=== PATIENT | male | born 1980 | race African-American/Black ===

== ENCOUNTER 2018-09-07 02:45 | Emergency (ER) | payer OTHER ==
[~2018-09-07] VITALS: Ht 177.8 cm; Wt 81.6 kg
[2018-09-07 02:54] VITALS: BP 140/87
[2018-09-07] MEDS ORDERED: LIDOCAINE 2% (LOCAL ANESTH.) PF 5ml SDV ONE (06:19)
== END 2018-09-07 03:33 | disposition home or self-care (01) ==
LOC: EDBD 02:45 → ER 02:53
DX: F15.10 Other stimulant abuse, uncomplicated (principal)
CPT/HCPCS: 99283; J2001

== ENCOUNTER 2019-04-12 21:26 | Emergency (ER) | payer SELFPAY ==
[~2019-04-12] VITALS: Ht 172.7 cm; Wt 68.0 kg
[2019-04-12 21:56] VITALS: BP 150/77
[2019-04-13] MEDS ORDERED: cefTRIAXone SOD 1,000 MG VL IM ONE (00:15)
[2019-04-13] MEDS ORDERED: HYDROcodone-ACET 10/325MG TAB PO ONE (00:15)
== END 2019-04-13 00:48 | disposition home or self-care (01) ==
LOC: EDBD 21:26 → ER 21:28
DX: S00.93XA Contusion of unspecified part of head, initial encounter (principal); W18.00XA Striking against unspecified object with subsequent fall, initial encounter; Y93.89 Activity, other specified; Y92.89 Other specified places as the place of occurrence of the external cause; Y99.8 Other external cause status
CPT/HCPCS: 70450; 96372; 99284; J0696

== ENCOUNTER 2024-10-21 11:57 | Emergency (ER) | payer SELFPAY ==
[~2024-10-21] VITALS: Ht 180.3 cm; Wt 68.1 kg
[2024-10-21 12:49] VITALS: BP 146/99; PULSE 68; RESP 20; TEMP 98.2; O2SAT 100
[2024-10-21 14:30] LABS: Basophils # (auto) 0 10 ^3/uL (0-0.2); Basophils % (auto) 0.5 % (0.0-2.0); Eosinophils # (auto) 0.1 10 ^3/uL (0-0.8); Eosinophils % (auto) 1.5 % (0.0-7.0); Hematocrit 38.4 % (41.0-53.0); Lymphocytes # (auto) 0.8 10 ^3/uL (0.4-5.4); Lymphocytes % (auto) 8.1 % (10.0-50.0); Mean Corpuscular Hemoglobin 28.8 pg (28.0-32.0); Mean Corpuscular Hgb Conc. 33.7 g/dL (32.0-36.0); Mean Corpuscular Volume 85.5 fL (80.0-100.0); Monocytes # (auto) 0.5 10 ^3/uL (0-1.3); Monocytes % (auto) 5.8 % (0.0-12.0); Neutrophils # (auto) 7.9 10 ^3/uL (1.6-8.6); Neutrophils % (auto) 84.1 % (37.0-80.0); Platelet Count (auto) 372 10^3/uL (140-450); Red Cell Distribution Width 15.2 % (11.8-14.3); White Blood Cell 9.3 10^3/uL (4.4-10.8)
[2024-10-21 14:34] LABS: Chloride 103 mmol/L (98-107); Potassium 4.2 mmol/L (3.5-5.1); Sodium 136 mmol/L (136-145)
[2024-10-21 14:35] LABS: Anion Gap 6 (5-15); Calcium 9.9 mg/dL (8.7-10.4); Carbon Dioxide 27 mmol/L (20-31)
[2024-10-21 14:40] LABS: BUN/Creatinine Ratio 8.7 (10.0-20.0); Blood Urea Nitrogen 11 mg/dL (9-23); Glucose 91 mg/dL (74-106)
--- NOTE | 2024-10-21 15:35 | ED.PDOC ---
Foreign Body HPI Comments 43 year old male presents to the ED for the c/c of a possible abscess located above the right orbital rim. Pt states that he has recently moved to the [facility] from [facility], and has since noticed the Abscess starting to grow. Pt states that he is unable to open eye because of "leakage". Right eye pain with cellulitis noted. Denies vision changes Denies eye discharge Denies hearing changes, nausea, vomiting Denies eye pain with movement, eye pain in general, feeling of something stuck in the eye, sensitivity to light Chief Complaint: Abscess Time Seen by MD: 15:29 History of Present Illness: Nurses Notes, Medications, Allergies Allergies: Coded Allergies: NO KNOWN ALLERGIES (Unverified , 10/21/24) Information Source: Patient Mode of Arrival: Ambulatory Timing: Weeks Duration: Since onset Severity: Moderate Prehospital treatment: None Location: Right Foreign Body: Unknown Removal: Unknown Associated signs and symptoms: Pain, Discharge Past Medical History PAST MEDICAL HISTORY: Denies Surgical History: Denies all surgeries Family History Family History: Reviewed,noncontributory to illness, No family hx of Cancer, No family hx of DM, No family hx of Heart sherry, No family hx of HTN, No family hx ofKidney sherry, No family hx of Liver sherry, No family hx of Lung sherry, No family hx of Stroke Social History Smoker: Non-Smoker Alcohol: Denies ETOH Use Drugs: Denies Drug Use Lives In: Home Constitutional: denies: chills, diaphoresis, fatigue, fever, malaise, sweats, weakness, others EENTM: reports: eye pain, eye redness; denies: blurred vision, double vision, ear bleeding, ear discharge, ear drainage, ear pain, ear ringing, hearing loss, mouth pain, mouth swelling, nasal discharge, nose bleeding, nose congestion, nose pain, photophobia, tearing, throat pain, throat swelling, voice changes, others Respiratory: denies: cough, hemoptysis, orthopnea, SOB at rest, shortness of breath, SOB with excertion, stridor, wheezing, others Cardiovascular: denies: chest pain, dizzy spells, diaphoresis, Dyspnea on exertion, edema, irregular heart beat, left arm pain, lightheadedness, palpitations, PND, syncope, others Gastrointestinal: denies: abdomen distended, abdominal pain, blood streaked bowels, constipated, diarrhea, dysphagia, difficulty swallowing, hematemesis, melena, nausea, poor appetite, poor fluid intake, rectal bleeding, rectal pain, vomiting, others Genitourinary: denies: burning, dysuria, flank pain, frequency, hematuria, incontinence, penile discharge, penile sore, pain, testicle pain, testicle swelling, urgency, others Neurological: denies: dizziness, fainting, headache, left sided numbness, left sided weakness, numbness, paresthesia, pre-existing deficit, right sided numbness, right sided weakness, seizure, speech problems, tingling, tremors, weakness, others Musculoskeletal: denies: back pain, gout, joint pain, joint swelling, muscle pain, muscle stiffness, neck pain, others Integumetry: denies: bruises, change in color, change in hair/nails, dryness, laceration, lesions, lumps, rash, wounds, others Allergic/Immunocompromised: denies: Difficulty Healing, Frequent Infections, Hives, Itching, others Hematologic/Lymphatic: denies: anemia, blood clots, easy bleeding, easy bruising, swollen glands, others Endocrine: denies: excessive hunger, excessive sweating, excessive thirst, excessive urination, flushing, intolerance to cold, intolerance to heat, unexplained weight gain, unexplained weight loss, others Psychiatric: denies: anxiety, bipolar disorder, depression, hopeless, panic disorder, schizophrenia, sleepless, suicidal, others All Other Systems: Reviewed and Negative Physical Exam General Appearance: No Apparent Distress, Normal HEENT: Other (notacible localized soft tissue swelling above the right orbital rim ,swelling is approx 3.5 by 3cm round in diameter and 3cm in depth, fluxuance to palpation, and no ttp, unable to visulaize the eye due to swelling) Neck: Full Range of Motion, Non-Tender, Normal, Normal Inspection Respiratory: Chest Non-Tender, Lungs Clear, No Accessory Muscle Use, No Respiratory Distress, Normal Breath Sounds Cardiovascular: No Edema, No JVD, No Murmur, No Gallop, Normal Peripheral Pulses, Regular Rate/Rhythm Breast Exam: Deferred Gastrointestinal: No Organomegaly, Non Tender, No Pulsatile Mass, Normal Bowel Sounds, Soft Genitalia: Deferred Pelvic: Deferred Rectal: Deferred Extremities: No calf tenderness, Normal capillary refill, Normal inspection, Normal range of motion, Non-tender, No pedal edema Musculoskeletal : Apperance: Normal Neurologic: Alert, facing grinder II-XII nml as Tested, No Motor Deficits, Normal Affect, Normal Mood, No Sensory Deficits Cerebellar Function: Normal Reflexes: Normal Skin: Dry, Normal Color, Warm Lymphatic: No Adenopathy Was a procedure done? Was a procedure done?: No FB Differential Dx Differential Diagnosis: Abrasion, Foreign Body X-Ray, Labs, Meds, VS Vital Signs Date Time Temp Pulse Resp B/P (MAP) Pulse Ox O2 Delivery O2 Flow Rate FiO2 10/21/24 12:49 98.2 68 20 146/99 (115) 100 98.2 Lab Test 10/21/24 14:13 Range/Units White Blood Count 9.3 4.4-10.8 10^3/uL Red Blood Count 4.50 4.5-5.90 10^6/uL Hemoglobin 13.0 L 13.5-17.5 g/dL Hematocrit 38.4 L 41.0-53.0 % Mean Corpuscular Volume 85.5 80.0-100.0 fL Mean Corpuscular Hemoglobin 28.8 28.0-32.0 pg Mean Corpuscular Hemoglobin Concent 33.7 32.0-36.0 g/dL Red Cell Distribution Width 15.2 H 11.8-14.3 % Platelet Count 372 140-450 10^3/uL Mean Platelet Volume 8.1 6.9-10.8 fL Neutrophils (%) (Auto) 84.1 H 37.0-80.0 % Lymphocytes (%) (Auto) 8.1 L 10.0-50.0 % Monocytes (%) (Auto) 5.8 0.0-12.0 % Eosinophils (%) (Auto) 1.5 0.0-7.0 % Basophils (%) (Auto) 0.5 0.0-2.0 % Neutrophils # (Auto) 7.9 1.6-8.6 10 ^3/uL Lymphocytes # (Auto) 0.8 0.4-5.4 10 ^3/uL Monocytes # (Auto) 0.5 0-1.3 10 ^3/uL Eosinophils # (Auto) 0.1 0-0.8 10 ^3/uL Basophils # (Auto) 0 0-0.2 10 ^3/uL Nucleated Red Blood Cells 0.0 % Sodium Level 136 136-145 mmol/L Potassium Level 4.2 3.5-5.1 mmol/L Chloride Level 103 98-107 mmol/L Carbon Dioxide Level 27 20-31 mmol/L Anion Gap 6 5-15 Blood Urea Nitrogen 11 9-23 mg/dL Creatinine 1.26 0.700-1.30 mg/dL Glomerular Filtration Rate Calc 73 >90 mL/min BUN/Creatinine Ratio 8.7 L 10.0-20.0 Serum Glucose 91 74-106 mg/dL Calcium Level 9.9 8.7-10.4 mg/dL X-Ray, Labs, Meds, VS Comment 43 year old male presents to the ED for the c/c of an abscess located above the right eye . + Swelling and erythema diffusely across tissues surrounding the orbit No limitation of EOM per patient, denies vision loss, vision pain, denies diplopia Differentials considered but not limited to orbital cellulitis, abscess above the orbital rim, chalazion, hordeolum, dacryocystitis or dacryoadenitis Labs in the ED ordered and results showed CBC 9.3, neutrophils 84.1, hemoglobin 13, electrolytes unremarkable, creatinine 1.26, GFR 73, serum glucose 91, calcium 9.[address] with con ordered pending results at this time In the ER the patient received 1 g vancomycin, 2 g Rocephin, a 30 mg Toradol IV, Thurman x1 for his pain with no adverse reaction Based on the findings above it it is anticipated the patient will be transferred for higher level of care for the possible abscess/cellulitis above the right orbital rim. Again pending CT at this time. Patient has been endorsed to Dr. Martinez at 1900 Time of 1ST Reevaluation: 16:02 Reevaluation 1ST: Unchanged Patient Education/Counseling: Diagnosis, Treatment Family Education/Counseling: No Family Present Departure 1 Departure Time of Disposition: 19:01 Impression: Primary Impression: Abscess Disposition: 51 HOSPICE/MEDICAL FACILITY Condition: Serious Critical Care Note Critical Care Time?: No Stability Stability form required: No Heart Score Heart Score: Heart Score Response (Comments) Value History N/A 0 EKG N/A 0 Age N/A 0 Risk Factors N/A 0 Troponin N/A 0 Total 0 I personally scribed for HUANG URIBE NP ([email or web address]) on 10/21/24 at 15:35. Electronically submitted by Cliff Reid ([email or web address]). HUANG URIBE NP October 21, 2024 15:35
[2024-10-21] MEDS: IOHEXOL 300 MG/ML 100ML BOTTLE IJ ONE ×2 (16:22)
[2024-10-21] MEDS ORDERED: VANCOMYCIN 1GM/200ML PM 200 ML IV ONE (19:00)
[2024-10-21] MEDS ORDERED: cefTRIAXone 2GM/50ML D5W 50 ML IV ONE (19:00)
[2024-10-21] MEDS ORDERED: HYDROcodone-ACET 5/325MG TAB PO ONE (19:15)
[2024-10-21] MEDS ORDERED: KETOROLAC TROMETH 30 MG/ML 1ML VIAL IV ONE (19:15)
--- NOTE | 2024-10-21 19:32 | DVH ---
Procedure: CT MAXILLOFACIAL WITH Study Date and Requested Time: 04:05 PM History: Right orbital swelling Cellulitis Comparison: None Dose: CTDI: 66.97 mGy DLP: 1517.87 mGycm Technique: Multiplanar images obtained through the face without intravenous contrast. Findings: [id number]-left facial subcutaneous fat edema with significant right-sided periorbital soft t issue edema with multiloculated hypodensity which does not measure simple fluid measuring about 2 x 4 by 3.5 cm. There appears to be minimal postseptal extraconal fat stranding involving the superior and medial ext raconal fat of the right orbit. The globes are unremarkable. Chronic deformity of bilateral lamina papyracea. The bilateral paranasal sinuses and mastoids are clear. Incompletely evaluated 0.6 x 1.2 x 1.5 cm enhancing area within the right parotid gland with addition al 0.4 x 0.6 x 1.5 cm area of enhancement. The nasopharynx, oropharynx and hypopharynx unremarkable. Impression: Facial soft tissue edema with significant soft tissue thickening of the right periorbital region with internal hypodensity which may represent an abscess /necrotic lesion measuring about 2 x 4 x 3.5 cm. There is mild right orbital postseptal fat stranding over the superior and medial anterior extraconal fat consistent with right orbital cellulitis.
== END 2024-10-21 19:40 | disposition left against medical advice (07) ==
LOC: MERGE 12:04 → ER 12:04
DX: H44.001 Unspecified purulent endophthalmitis, right eye (principal)
CPT/HCPCS: 36415; 70487; 80048; 85025; 99285; Q9967